=== PATIENT | female | born 1990 | race Two or more races ===

== ENCOUNTER 2021-08-15 15:01 | Inpatient (IN) | payer SELFPAY ==
[~2021-08-15] VITALS: Ht 152.4 cm; Wt 59.0 kg
[2021-08-15] MEDS: IV RINGERS,LACTATED 1000ML 1,000 ML IV SCH ×2 (17:30→18:45)
[2021-08-15 18:20] LABS: BACTERIA,URINE MODERATE /HPF (0-FEW)
[2021-08-15] MEDS ORDERED: TERBUTALINE 1 MG/ML VIAL. SQ PRN (18:45)
[2021-08-15] MEDS ORDERED: LIDOCAINE 1% PF 30 ML VIAL. INJ PRN (18:45)
[2021-08-15] MEDS ORDERED: OXYTOCIN 30 UNIT/500 ML PREMIX 500 ML IV PRN ×3 (18:45→20:00)
[2021-08-15] MEDS ORDERED: BUTORPHANOL 2 MG/ML VIAL. IVP PRN (18:45)
[2021-08-15] MEDS ORDERED: 0.9 % SODIUM CHLORIDE 10 ML DISP.SYRIN. IV PRN ×2 (18:45→20:00)
[2021-08-15 19:16] LABS: BASO % 0 % (0-3); EOS % 0 % (0-3); HEMATOCRIT 31.3 % (36.0-47.0); HEMOGLOBIN 10.1 g/dL (12.0-15.5); LYMPH # 1.1 x10^3/uL (1.0-4.8); LYMPH % 10 % (24-48); MEAN CORPUSCULAR HEMOGLOBIN 26 pg (25-35); MEAN CORPUSCULAR HGB CONC 32 g/dL (31-37); MEAN CORPUSCULAR VOLUME 79 fL (79-100); MONO # 0.6 x10^3/uL (0.0-1.1); MONO % 6 % (0-9); NEUT # 8.7 x10^3/uL (1.8-7.7); NEUT % 84 % (31-73); PLATELET COUNT 139 x10^3/uL (140-400); RED BLOOD COUNT 3.95 x10^6/uL (3.50-5.40); RED CELL DISTRIBUTION WIDTH 18.9 % (11.5-14.5); WHITE BLOOD COUNT 10.3 x10^3/uL (4.0-11.0)
--- NOTE | 2021-08-15 19:47 | PDOC4 ---
VAGINAL DELIVERY DATE DATE: 08/15/21 TIME: 19:32 TIME 1908 : 4 Para: 3 EDC: Aug 10, 2021 EGA: 40.5 VAGINAL DELIVERY: VTX PLACENTA: Spontaneous (1914) 8/9 WEIGHT Weight [Pending] Nuchal Cord: Yes Amniotic Fluid: Clear PAIN: Natural EPISIOTOMY: No EXTENSION: No EBL 300mL CONDITION Both mother and were stable following delivery Signs of Intrauterine Infectio: None Shoulder Dystocia: No SHERRELL LOZANO CNM Aug 15, 2021 19:47
[2021-08-15] MEDS ORDERED: PHENYLEPH/MINERAL OIL/PETROLAT RECTAL OINTMENT TUBE. RC PRN (20:00)
[2021-08-15] MEDS ORDERED: SIMETHICONE 80 MG TAB.CHEW PO PRN (20:00)
[2021-08-15] MEDS ORDERED: HYDROCORTISONE 1% TOPICAL OINTMENT 30GM TUBE. TP PRN (20:00)
[2021-08-15] MEDS ORDERED: MAG HYDROX/ALUMINUM HYD/SIMETH 30 ML ORAL.SUSP PO PRN (20:00)
[2021-08-15] MEDS ORDERED: TDaP (BOOSTRIX) per PROTOCOL. MC PRN (20:00)
[2021-08-15] MEDS ORDERED: MAGNESIUM HYDROXIDE 2,400 MG/30 ML ORAL.SUSP. PO PRN (20:00)
[2021-08-15] MEDS ORDERED: ZOLPIDEM 5 MG TABLET. PO PRN (20:00)
[2021-08-15] MEDS ORDERED: oxyCODONE/APAP 5/325 1 TAB TABLET PO PRN ×2 (20:00)
[2021-08-15] MEDS ORDERED: BENZOCAINE 20% TOPICAL AEROSOL SPRAY 57GM CAN. TP PRN (20:00)
[2021-08-15] MEDS ORDERED: ACETAMINOPHEN 325 MG TABLET. PO PRN (20:00)
[2021-08-15] MEDS ORDERED: diphenhydrAMINE HCL 25 MG CAPSULE PO PRN (20:00)
[2021-08-15] MEDS ORDERED: MMR per PROTOCOL. MC PRN (20:00)
[2021-08-15] MEDS: IBUPROFEN 400 MG TABLET. PO PRN (20:23)
[2021-08-15 23:45] VITALS: BP 97/60
[2021-08-16] MEDS: IV RINGERS,LACTATED 1000ML 1,000 ML IV SCH ×6 (01:30→18:45)
[2021-08-16 04:00] VITALS: BP 104/69
[2021-08-16] MEDS: IBUPROFEN 400 MG TABLET. PO PRN (06:52)
[2021-08-16 08:05] LABS: BASO % 0 % (0-3); EOS % 0 % (0-3); HEMATOCRIT 27.8 % (36.0-47.0); HEMOGLOBIN 8.9 g/dL (12.0-15.5); LYMPH # 1.3 x10^3/uL (1.0-4.8); LYMPH % 17 % (24-48); MEAN CORPUSCULAR HEMOGLOBIN 26 pg (25-35); MEAN CORPUSCULAR HGB CONC 32 g/dL (31-37); MEAN CORPUSCULAR VOLUME 80 fL (79-100); MONO # 0.5 x10^3/uL (0.0-1.1); MONO % 7 % (0-9); NEUT # 5.5 x10^3/uL (1.8-7.7); NEUT % 75 % (31-73); PLATELET COUNT 127 x10^3/uL (140-400); RED BLOOD COUNT 3.49 x10^6/uL (3.50-5.40); RED CELL DISTRIBUTION WIDTH 18.6 % (11.5-14.5); WHITE BLOOD COUNT 7.3 x10^3/uL (4.0-11.0)
[2021-08-16] MEDS: FERROUS SULFATE 325 MG TABLET. PO SCH ×2 (09:12→17:32)
[2021-08-16] MEDS: MULTIVITAMIN with MINERAL TABLET. PO SCH (09:12)
[2021-08-16 10:00] VITALS: BP 100/60
[2021-08-16] MEDS: DOCUSATE SODIUM 100 MG CAPSULE. PO PRN (10:18)
--- NOTE | 2021-08-16 13:24 | PDOC1 ---
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 SVE 3cm on arrival with progressive change to 6cm. Limited PNC, otherwise has been uncomplicated. Denies complications with previous labor, delivery. Past Medical History: Cardiovascular: No pertinent hx Pulmonary: No pertinent hx GI: No pertinent hx Heme/Onc: No pertinent hx Hepatobiliary: No pertinent hx Psych: No pertinent hx Rheumatologic: No pertinent hx Infectious disease: No pertinent hx ENT: No pertinent hx Renal/: No pertinent hx Endocrine: No pertinent hx Dermatology: No pertinent hx Grav: 4 Para: 2 Social History: Smoke: No ALCOHOL: none Drugs: None Medications: Meds: Current Medications Medications (Trade) Dose Ordered Sig/Chaz Route PRN Reason Start Time Stop Time Status Last Admin Dose Admin Ferrous Sulfate (Feosol) 325 mg BIDWMEALS PO 08/16/21 08:00 08/16/21 09:12 Multivitamins (Thera M Plus) 1 tab DAILY PO 08/16/21 09:00 08/16/21 09:12 Docusate Sodium (Colace) 100 mg PRN DAILY PRN PO HARD STOOLS 08/16/21 09:45 08/16/21 10:18 Allergies: Coded Allergies: No Known Drug Allergies (Unverified , 08/15/21) Physical Exam: Vital Signs: Vital Signs Date Time Temp Pulse Resp B/P (MAP) Pulse Ox O2 Delivery O2 Flow Rate FiO2 08/16/21 10:00 97.5 78 18 100/60 (73) Room Air 97.5 08/16/21 04:00 97 PE: GENERAL: No apparent distress. Alert and oriented. HEENT: Head normocephalic, atraumatic. NECK: Supple LUNGS: Clear to auscultation. HEART: RRR, S1, S2 present, pulses intact ABDOMEN: Soft, positive bowel sounds. EXTREMITIES: No cyanosis or edema. NEUROLOGIC: Normal speech, normal tone PSYCHIATRIC: Normal affect, normal mood. SKIN: No ulceration. Labs: Laboratory Tests Test 08/15/21 17:20 08/15/21 18:25 08/16/21 07:35 Urine Collection Type Unknown Urine Color (Auto) Yellow Urine Turbidity Clear Urine pH (Auto) 6.5 (<5.0-8.0) Urine Specific [place] 1.027 (1.000-1.030) Urine Protein (Auto) 30 mg/dL (Negative) Urine Glucose (Auto)(UA) Negative mg/dL (Negative) Urine Ketones (Auto) 100 mg/dL (Negative) Urine Blood (Auto) Small (Negative) Urine Nitrite Negative (Negative) Urine Bilirubin (Auto) Negative (Negative) Urine Urobilinogen (Auto) Normal mg/dL (Normal) Urine Leukocyte Esterase (Auto) Negative (Negative) Urine RBC 3-5 /HPF (0-2) Urine WBC 5-10 /HPF (0-4) Urine Squamous Epithelial Cells Many /LPF Urine Transitional Epithelial Cells Few /LPF Urine Bacteria Moderate /HPF (0-FEW) Urine Mucus Mod /LPF White Blood Count 10.3 x10^3/uL (4.0-11.0) 7.3 x10^3/uL (4.0-11.0) Red Blood Count 3.95 x10^6/uL (3.50-5.40) 3.49 x10^6/uL (3.50-5.40) L Hemoglobin 10.1 g/dL (12.0-15.5) L 8.9 g/dL (12.0-15.5) L Hematocrit 31.3 % (36.0-47.0) L 27.8 % (36.0-47.0) L Mean Corpuscular Volume 79 fL (79-100) 80 fL (79-100) Mean Corpuscular Hemoglobin 26 pg (25-35) 26 pg (25-35) Mean Corpuscular Hemoglobin Concent 32 g/dL (31-37) 32 g/dL (31-37) Red Cell Distribution Width 18.9 % (11.5-14.5) H 18.6 % (11.5-14.5) H Platelet Count 139 x10^3/uL (140-400) L 127 x10^3/uL (140-400) L Neutrophils (%) (Auto) 84 % (31-73) H 75 % (31-73) H Lymphocytes (%) (Auto) 10 % (24-48) L 17 % (24-48) L Monocytes (%) (Auto) 6 % (0-9) 7 % (0-9) Eosinophils (%) (Auto) 0 % (0-3) 0 % (0-3) Basophils (%) (Auto) 0 % (0-3) 0 % (0-3) Neutrophils # (Auto) 8.7 x10^3/uL (1.8-7.7) H 5.5 x10^3/uL (1.8-7.7) Lymphocytes # (Auto) 1.1 x10^3/uL (1.0-4.8) 1.3 x10^3/uL (1.0-4.8) Monocytes # (Auto) 0.6 x10^3/uL (0.0-1.1) 0.5 x10^3/uL (0.0-1.1) Eosinophils # (Auto) 0.0 x10^3/uL (0.0-0.7) 0.0 x10^3/uL (0.0-0.7) Basophils # (Auto) 0.0 x10^3/uL (0.0-0.2) 0.0 x10^3/uL (0.0-0.2) Treponema pallidum Antibody Nonreactive (Nonreactive) SARS-CoV-2 Antigen (Rapid) Negative (NEGATIVE) Laboratory Tests 08/15/21 18:25 08/16/21 07:35 Laboratory Tests 08/16/21 07:35 Assessment & Plan: Cat I FHT. Admit, spontaneous labor, anticipate . SHERRELL LOZANO CNM Aug 16, 2021 13:24
[2021-08-16 14:00] VITALS: BP 106/71
[2021-08-16 18:46] VITALS: BP 104/68
[2021-08-17 01:18] VITALS: BP 113/72
[2021-08-17] MEDS: IBUPROFEN 400 MG TABLET. PO PRN (01:18)
[2021-08-17] MEDS: IV RINGERS,LACTATED 1000ML 1,000 ML IV SCH ×2 (01:30→02:45)
[2021-08-17 08:30] VITALS: BP 106/64
[2021-08-17] MEDS: FERROUS SULFATE 325 MG TABLET. PO SCH (08:30)
[2021-08-17] MEDS: DOCUSATE SODIUM 100 MG CAPSULE. PO PRN (09:25)
[2021-08-17] MEDS: MULTIVITAMIN with MINERAL TABLET. PO SCH (09:25)
[2021-08-17 12:30] VITALS: BP 107/69
--- NOTE | 2021-08-17 13:42 | PDOC ---
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 Pain well managed with PO meds. Tolerates activity, diet, and voiding without difficulty. Otherwise denies complaints. Objective: Objective: FF @ U/2, scant lochia. No edema. Vital Signs: Vital Signs Date Time Temp Pulse Resp B/P (MAP) Pulse Ox O2 Delivery O2 Flow Rate FiO2 08/16/21 09:00 Room Air 08/16/21 10:00 97.5 78 18 100/60 (73) 97.5 Vital Signs Date Time Temp Pulse Resp B/P (MAP) Pulse Ox O2 Delivery O2 Flow Rate FiO2 08/17/21 12:30 98.1 74 18 107/69 (82) Room Air 98.1 Physical Exam: GENERAL: No apparent distress. Alert and oriented. HEENT: Head normocephalic, atraumatic. NECK: Supple LUNGS: Clear to auscultation. HEART: RRR, S1, S2 present, pulses intact ABDOMEN: Soft, positive bowel sounds. EXTREMITIES: No cyanosis or edema. NEUROLOGIC: Normal speech, normal tone PSYCHIATRIC: Normal affect, normal mood. SKIN: No ulceration. Assessment & Plan: Reviewed discharge instructions, precautions, and warning signs. RTO [address] Fischer. SHERRELL LOZANO CNM Aug 17, 2021 13:42
[2021-08-17] MEDS ORDERED: IBUP-1027 PO (13:49)
[2021-08-17] MEDS ORDERED: DOCU-109 PO (13:49)
[2021-08-17] MEDS ORDERED: FERR325T72 PO (13:49)
[2021-08-17 16:30] VITALS: BP 112/78
== END 2021-08-17 16:45 | disposition home or self-care (01) | DRG 807 ==
LOC: 3 SO LND 15:01 → OBSVTOIN 19:09 → 3 SO LND 22:45
PROVIDERS: ADMIT Obstetrics & Gynecology; ATTEND Obstetrics & Gynecology
PROC: 10E0XZZ Delivery of Products of Conception, External Approach (ICD-10-PCS; principal; 2021-08-15)
DX: O69.81X0 Labor and delivery complicated by cord around neck, without compression, not applicable or unspecified (principal); Z37.0 Single live birth; Z20.822 Contact with and (suspected) exposure to COVID-19; Z3A.40 40 weeks gestation of pregnancy
CPT/HCPCS: 36415; 81001; 85025; 86592; 86850; 86900; 86901; 87086; 87426; G0378; G0379; J2590; U0003